=== PATIENT | female | born 1955 | race American Indian/Alaskan Native ===

== ENCOUNTER 2017-01-17 16:20 | Emergency (ER) | payer SELFPAY ==
[2017-01-17 17:17] LABS: Basophils % (Auto) 0.7 % (0.0-1.8); Hemoglobin 14.2 gm/dl (10.1-14.3); Mean Corpuscular HGB Conc 33 % (30-34); Mean Corpuscular Hemoglobin 29 pg (28-32); Mean Corpuscular Volume 89 fl (79-97); Platelet Count 181 K/mm3 (140-440); Red Blood Count 4.84 M/mm3 (3.65-5.03); Red Cell Distribution Width 15.9 % (13.2-15.2); White Blood Count 6.2 K/mm3 (4.5-11.0)
[2017-01-17 17:20] LABS: Anion Gap 21 mmol/L; BUN/Creatinine Ratio 12.22; Blood Urea Nitrogen 11 mg/dL (7-17); Calcium 9.6 mg/dL (8.4-10.2); Carbon Dioxide 24 mmol/L (22-30); Glucose 108 mg/dL (65-100); Potassium 4.2 mmol/L (3.6-5.0); Sodium 144 mmol/L (137-145)
[2017-01-17] MEDS ORDERED: MORPHINE IV ONE (17:56)
[2017-01-17] MEDS ORDERED: ZOFRAN IV ONE (17:56)
[2017-01-17] MEDS ORDERED: LASIX IV ONE (17:59)
--- NOTE | 2017-01-17 18:03 | Emergency Department Report ---
ED Shortness of Breath HPI - General Chief Complaint: Dyspnea/Respdistress Stated Complaint: RAMU Time Seen by Provider: 01/17/17 17:48 Source: patient Mode of arrival: Ambulatory Limitations: No Limitations - History of Present Illness MD Complaint: shortness of breath -: Gradual Pain Scale: 5 Consistency: intermittent Known History Of: congestive heart failure - Related Data Previous Rx's Medication Instructions Recorded Last Taken Type Losartan [Cozaar] 100 mg PO QDAY #30 tablet 01/17/17 Unknown Rx Allergies Allergy/AdvReac Type Severity Reaction Status Date / Time No Known Allergies Allergy Unverified 01/17/17 16:37 ED Review of Systems ROS: Stated complaint: RAMU Other details as noted in HPI Comment: All other systems reviewed and negative Constitutional: denies: diaphoresis, fever, weakness Respiratory: shortness of breath, SOB with exertion. denies: SOB at rest Cardiovascular: denies: chest pain, palpitations Gastrointestinal: denies: abdominal pain, nausea Genitourinary: denies: dysuria Neurological: denies: headache ED Past Medical Hx - Past Medical History Hx Hypertension: Yes Hx Congestive Heart Failure: Yes Additional medical history: cardiac EF 20% - Surgical History Additional Surgical History: AICD - Social History Smoking Status: Never Smoker Substance Use Type: None - Medications Home Medications: Home Medications Medication Instructions Recorded Confirmed Last Taken Type Losartan [Cozaar] 100 mg PO QDAY #30 tablet 01/17/17 Unknown Rx ED Physical Exam - General Limitations: No Limitations General appearance: alert, in no apparent distress - Head Head exam: Present: atraumatic - Neck Neck exam: Present: normal inspection, full ROM. Absent: tenderness, meningismus - Respiratory Respiratory exam: Present: normal lung sounds bilaterally. Absent: wheezes, rales, rhonchi - Cardiovascular Cardiovascular Exam: Present: regular rate ED Course Vital Signs 01/17/17 16:31 Temperature 98.1 F Pulse Rate 78 Respiratory 20 Rate Blood Pressure 192/121 O2 Sat by Pulse 98 Oximetry - Reevaluation(s) Reevaluation #1: 01/17/17 18:21 PATIENT STILL DENYING ANY CHEST PAIN.SHE WANT RE-FILL OF HER [place] ED Medical Decision Making - Lab Data Result diagrams: 01/17/17 16:43 01/17/17 16:43 Critical care attestation.: If time is entered above; I have spent that time in minutes in the direct care of this critically ill patient, excluding procedure time. ED Disposition Clinical Impression: Congestive heart disease Disposition: DC-01 TO HOME OR SELFCARE Is pt being admited?: No Does the pt Need Aspirin: No Condition: Stable Prescriptions: Losartan [Cozaar] 100 mg PO QDAY #30 tablet
--- NOTE | 2017-01-17 18:13 | XRay Report ---
FINAL REPORT EXAM: XR CHEST ROUTINE 2V HISTORY: Shortness of breath TECHNIQUE: PA and lateral chest radiographs PRIORS: None. FINDINGS: No mediastinal shift. Cardiac silhouette is not enlarged. Left chest pacemaker. No pneumothorax, effusion, or focal pulmonary opacity. No acute skeletal finding. IMPRESSION: No focal pulmonary opacity.
[2017-01-17] MEDS ORDERED: LASIX PO ONE (18:24)
[2017-01-17 18:52] VITALS: BP 161/88
== END 2017-01-17 18:57 | disposition home or self-care (01) ==
LOC: ED 16:20
DX: I50.9 Heart failure, unspecified (principal); I10 Essential (primary) hypertension; Z95.810 Presence of automatic (implantable) cardiac defibrillator
CPT/HCPCS: 36415; 71020; 80048; 83880; 84484; 85025; 93005; 93010